=== PATIENT | female | born 1970 | race Caucasian/White ===

== ENCOUNTER 2016-10-26 14:51 | Emergency (ER) | payer OTHER ==
[~2016-10-26] VITALS: Ht 175.3 cm; Wt 89.5 kg
[~2016-10-26 14:51] MED LIST: ABILIFY; ABILIFY 10MG TA10 MG PO; ALEVE 220MG220 MG PO; ANTIVERT 25MG25 MG PO; ASPIRIN 81M81 MG/TA2 PO; ATIVAN 0.50.5 MG/TAB PO; CEFTIN500 MG PO; CYMBALTA 20MG20 MG; FLAGYL500 MG PO; FLEXERIL5 MG PO; FOLIC ACID; FOLIC ACID0.4 MG PO; FOLIC ACID1 MG PO; HALDOL 5MG T5 MG/TAB PO; HALDOL5 MG PO; LAMICTAL ODT100 MG PO; LAMICTAL PO; LAMOTRIGINE; LORTAB 5/500 501 TAB PO; MOTRIN800 MG PO; MULTIPLE VITAMI1 CAP PO; MULTIVITAMIN1 TA1 PO; MVI; NITROSTAT0.4 MG/TAB SL; NO HOME MEDICATIONS; PRENATAL VITAMI1 TA5 PO; PYRIDIUM200 M1 PO; ROXICODONE 55 MG/TAB PO; TOPROL XL 25MG25 MG PO; VICODIN 5/5001 UDTAB PO; [UNRECOGNIZED DRUG - OTHER] PO; [UNRECOGNIZED DRUG - REMARK]
[2016-10-26 14:52] VITALS: BP 136/82; TEMP 97.8
[2016-10-26] MEDS ORDERED: FOLIC ACID0.4 MG (14:59)
[2016-10-26] MEDS ORDERED: MULTI VITAMINS1 TAB PO (14:59)
[2016-10-26] MEDS ORDERED: OMEGA-3 1000 MG1 CAP PO (15:00)
[2016-10-26 15:45] LABS: PH 6 (5-8); URINE APPEARANCE Cloudy; URINE BILIRUBIN Negative (NEGATIVE); URINE BLOOD 3+ (NEGATIVE); URINE COLOR Yellow; URINE GLUCOSE Negative (NEGATIVE); URINE KETONE Negative (NEGATIVE); URINE UROBILINOGEN Negative (NEGATIVE)
[2016-10-26 15:46] LABS: URINE BACTERIA Moderate /hpf; URINE RBC >50 /hpf; URINE WBC 20-50 /hpf
[2016-10-26] MEDS ORDERED: PYRIDIUM200 M1 PO (16:05)
[2016-10-26] MEDS ORDERED: MACROBID 1100 MG/CAP PO (16:05)
[2016-10-26 16:18] VITALS: PULSE 74
== END 2016-10-26 16:19 | disposition home or self-care (01) ==
LOC: COL.ER 14:51
PROVIDERS: Physician Assistant
DX: N39.0 Urinary tract infection, site not specified (principal); B96.20 Unspecified Escherichia coli [E. coli] as the cause of diseases classified elsewhere; R31.9 Hematuria, unspecified; R20.2 Paresthesia of skin